=== PATIENT | male | born 1985 | race Caucasian/White ===

== ENCOUNTER 2016-10-23 22:50 | Emergency (ER) | payer SELFPAY ==
[2016-10-23] MEDS ORDERED: 0.9% Sodium Chloride 1,000 ML IV ONE (22:53)
[2016-10-23] MEDS ORDERED: fentaNYL-PF 50 mCg/mL 2 mL Inj ONE (22:58)
[2016-10-23] MEDS ORDERED: fentaNYL-PF 50 mCg/mL 2 mL Inj IVPUSH ONE ×2 (23:00→23:55)
--- NOTE | 2016-10-23 23:24 | ABG ---
DateTimeAnalyzed 23:17:00 -_ pH ____7.301 - 7.201 7.300 pCO2 ___47.6__ -mmHg 40.0 50.9 pO2 312 -mmHg 45.0 70.0 HCO3- ___22.8__ -mmol/L 20.0 24.0 ABE ___-3.5__ -mmol/L tHb ___14.3__ -g/dL O2Hb ___98.4__ -% COHb ____0.1__ -% MetHb ____0.7__ -% sO2 ___99.2__ -% FIO2 __100.0__ -% PEEP ____5.0__ -cmH2O Set_RR ___20.0__ -b/min Vt __460.0__ -L Drawn By MM - Date/Time Notified____ 23:23:00 -_ Spontaneous_RR ___20.0__ -b/min A/C __460.0__ - Oxygen Device 1 VENTILATOR - Notified Whom _DR SLACK - B 759 -mmHg tO2 ___20.5__ -Vol% Evangelista test N/A -
[2016-10-23 23:25] LABS: BASOPHILS % (AUTO) 0.1 % (0-3); EOSINOPHILS % (AUTO) 0.3 % (0-5); MONOCYTES % (AUTO) 4.5 % (4-12); Mean Corpuscular Hemoglobin 30.8 pg (27.0-35.0); Mean Corpuscular Volume 91.9 fL (81-100); NEUTROPHILS % (AUTO) 74.8 % (40-74); Platelet Count 303 bil/L (150-400)
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
[2016-10-23] MEDS ORDERED: Vecuronium 1,000 mCg/mL 10 mL Inj ONE (23:36)
[2016-10-23 23:50] VITALS: O2SAT 100
[2016-10-23] MEDS ORDERED: Vecuronium 1,000 mCg/mL 10 mL Inj IV ONE (23:55)
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
[2016-10-24 00:26] LABS: APPEARANCE,URINE HAZY (CLEAR,HAZY); COLOR,URINE STRAW (YELLOW); OCCULT BLOOD,URINE LARGE (NEGATIVE)
[2016-10-24 00:27] LABS: UROBILINOGEN,URINE NORMAL (NORMAL)
[2016-10-24 00:29] LABS: INR 0.96 ratio
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
--- NOTE | 2016-10-24 09:00 | DRSVH ---
PROCEDURE: X-RAY CHEST ONE VIEW, PORTABLE ([id number]) INDICATIONS: Status post chest tube and OG tube placement. TECHNIQUE: One view of the chest was acquired. COMPARISON: [facility], CR, XR CHEST 1VW (PORTABLE), 10/23/2016, 22:39. FINDINGS: Surgical changes and devices: There is a new right-sided chest tube. There is also a new orogastric tube extending into the stomach with tip not included on the current study. The endotracheal tube head s been repositioned with the tip approximately 3.5 cm from the ericka. Lungs and pleura: There is a persistent medial lucency in the right hemithorax suggesting a small res idual pneumothorax on this supine study. Multiple right confluent opacities are redemonstrated consi stent with pulmonary contusions. Left lung is clear. Mediastinum: Mediastinal contours appear prominent likely due to technique. Heart size is normal. Bones and chest wall: Multiple right-sided rib fractures are redemonstrated as well as a right clavi cular fracture. There is an old healed left clavicular fracture. There is mild right subcutaneous e mphysema in the chest wall. IMPRESSION: 1. New right sided chest tube and orogastric tube as described as well as interval repositioning of the endotracheal tube. 2. Persistent medial lucency in the right hemithorax suggesting a residual small pneumothorax on thi s supine projection. Recommend attention on followup. 3. Right-sided pulmonary contusions redemonstrated. 4. Multiple right-sided rib fractures and right clavicular fracture also again noted. Dictated by: Bradley Read M.D. on 10/24/2016 at 8:55 Approved by: Bradley Read M.D. on 10/24/2016 at 8:58
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
== END 2016-10-24 00:15 | disposition short-term general hospital (02) ==
LOC: EDUNIT# 22:50 → SED 22:50 → EDBD 22:50 → SED 10-24 00:15
DX: S06.5X9A Traumatic subdural hemorrhage with loss of consciousness of unspecified duration, initial encounter (principal); S22.41XA Multiple fractures of ribs, right side, initial encounter for closed fracture; S27.321A Contusion of lung, unilateral, initial encounter; S36.114A Minor laceration of liver, initial encounter; S42.001A Fracture of unspecified part of right clavicle, initial encounter for closed fracture; S26.91XA Contusion of heart, unspecified with or without hemopericardium, initial encounter; S30.1XXA Contusion of abdominal wall, initial encounter; V29.9XXA Motorcycle rider (driver) (passenger) injured in unspecified traffic accident, initial encounter; Y92.410 Unspecified street and highway as the place of occurrence of the external cause; Y93.55 Activity, bike riding; Y99.8 Other external cause status; F10.220 Alcohol dependence with intoxication, uncomplicated; J93.9 Pneumothorax, unspecified; R40.2431 Glasgow coma scale score 3-8, in the field [EMT or ambulance]; Z91.041 Radiographic dye allergy status; Z88.5 Allergy status to narcotic agent; Z88.6 Allergy status to analgesic agent
CPT/HCPCS: 32551; 36415; 36620; 70450; 71010; 71260; 72125; 74177; 80053; 81001; 82375; 82803; 85014; 85018; 85025; 85610; 85730; 86850; 92950; 93005; 94799; 96360; 99291; 99292; G0390; G0480; J7030; Q9967

== ENCOUNTER 2016-11-03 20:54 | Emergency (ER) | payer SELFPAY ==
[~2016-11-03] VITALS: Ht 167.6 cm; Wt 72.7 kg
[2016-11-03 21:03] VITALS: BP 137/78; PULSE 139; RESP 16; O2SAT 94
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
== END 2016-11-03 22:05 | disposition home or self-care (01) ==
LOC: SED 20:54 → EDUNIT# 20:54 → EDBD 20:54 → SED 22:05
DX: F10.129 Alcohol abuse with intoxication, unspecified (principal); Z88.5 Allergy status to narcotic agent; Z91.041 Radiographic dye allergy status